=== PATIENT | female | born 1980 | race Asian ===

== ENCOUNTER 2019-02-09 02:40 | Observation (INO) | payer BC, OTHER ==
[2019-02-09 03:53] LABS: ADD MAN DIFF? NO
[2019-02-09 04:07] LABS: BASOPHILS % 0.6 % (0.0-2.0); EOSINOPHILS # 0.3 10^3/ul (0.0-0.5); EOSINOPHILS % 3.7 % (0.0-7.0); HEMATOCRIT 39.2 % (37.0-47.0); HEMOGLOBIN 12.9 g/dl (12.0-16.0); LYMPHOCYTES # 1.8 10^3/ul (0.8-2.9); LYMPHOCYTES % 26.2 % (15.0-51.0); MEAN CORPUSCULAR HEMOGLOBIN 29.3 pg (29.0-33.0); MEAN CORPUSCULAR HGB CONC 32.9 g/dl (32.0-37.0); MEAN CORPUSCULAR VOLUME 88.9 fl (82.0-101.0); MEAN PLATELET VOLUME 9.9 fl (7.4-10.4); MONOCYTE # 0.6 10^3/ul (0.3-0.9); MONOCYTES % 8.8 % (0.0-11.0); NEUTROPHILS % 60.1 % (39.0-77.0); PLATELET COUNT 240 10^3/UL (140-415); RED BLOOD COUNT 4.41 10^6/ul (4.20-5.40); RED CELL DISTRIBUTION WIDTH 12.9 % (11.5-14.5)
[2019-02-09 04:07] LABS: WHITE BLOOD COUNT 6.7 10^3/ul (4.8-10.8)
[2019-02-09 04:24] LABS: ADD UMIC NO; UR AMORPHOUS CRYSTAL FEW /HPF (NONE SEEN); UR ASCORBIC ACID NEGATIVE (NEGATIVE); UR BILIRUBIN (Dip) NEGATIVE (NEGATIVE); UR BLOOD (Dip) NEGATIVE (NEGATIVE); UR CLARITY SLIGHTLY CLOUDY (CLEAR); UR COLOR YELLOW (YELLOW); UR GLUCOSE (Dip) NEGATIVE (NEGATIVE); UR KETONES (Dip) NEGATIVE (NEGATIVE); UR LEUKOCYTE ESTERASE (Dip) NEGATIVE Leu/ul (NEGATIVE); UR MUCUS FEW /HPF (NONE SEEN); UR NITRITE (Dip) NEGATIVE (NEGATIVE); UR RBC 1 /HPF (0-5); UR SPECIFIC GRAVITY (Dip) 1.025 (1.003-1.030); UR SQUAMOUS EPITHELIAL CELL FEW /HPF (FEW); UR TOTAL PROTEIN (Dip) NEGATIVE (NEGATIVE); UR UROBILINOGEN (Dip) NEGATIVE (NEGATIVE); UR WBC 3 /HPF (0-5)
[2019-02-09] MEDS ORDERED: ONDANSETRON 4 MG INJ IV ×2 (05:30→10:30)
[2019-02-09] MEDS ORDERED: ACETAMINOPHEN 325 MG TAB PO (05:30)
[2019-02-09] MEDS: DOXYCYCLINE 100 MG in SOD CHLORIDE 0.9% 250 ML IVPB (09:51)
[2019-02-09] MEDS ORDERED: FENTAnyl 50 MCG/ML VIAL ×2 (10:02→10:40)
[2019-02-09] MEDS ORDERED: FENTAnyl 50 MCG/ML VIAL IV (10:30)
[2019-02-09] MEDS ORDERED: ALBUTEROL 0.083% (NEB) 2.5 MG/3 ML AMP HHN (10:30)
[2019-02-09] MEDS ORDERED: HYDROmorphONE 1 MG/5 ML IV SYRINGE IV (10:30)
[2019-02-09] MEDS ORDERED: DIPHENHYDRAMINE 50 MG INJ IV (10:30)
[2019-02-09] MEDS ORDERED: MEPERIDINE 25 MG INJ IV (10:30)
[2019-02-09] MEDS ORDERED: LIDOCAINE 2% (SDV) 5 ML INJ (10:39)
[2019-02-09] MEDS ORDERED: MIDAZOLAM 1 MG/ML 2 ML INJ (10:39)
[2019-02-09] MEDS ORDERED: PROPOFOL 0 ML (10:39)
[2019-02-09] MEDS ORDERED: ONDANSETRON 4 MG INJ (10:40)
[2019-02-09] MEDS ORDERED: DEXAMETHASONE 4 MG/ML 5 ML INJ (10:40)
[2019-02-09] MEDS ORDERED: LIDOCAINE 100 MG SYRINGE (10:40)
[2019-02-09] MEDS ORDERED: PROPOFOL 20 ML (10:40)
[2019-02-09] MEDS ORDERED: OXYTOCIN 10 UNIT INJ (10:40)
[2019-02-09] MEDS ORDERED: METOCLOPRAMIDE 10 MG INJ (10:40)
[2019-02-09] MEDS ORDERED: SUCCINYLCHOLINE CHLORIDE 100 MG/5 ML SYG IV (10:40)
[2019-02-09] MEDS ORDERED: SILVER NITRATE SWAB (10:48)
[2019-02-09] MEDS: METOCLOPRAMIDE 10 MG INJ IV (11:26)
[2019-02-09] MEDS: FENTAnyl 50 MCG/ML VIAL IV (11:26)
[2019-02-09] MEDS: HYDROmorphONE 1 MG/5 ML IV SYRINGE IV (11:26)
[2019-02-09] MEDS ORDERED: HYDROCODONE/APAP (5/325) TAB PO (12:30)
[2019-02-09] MEDS: DOXYCYCLINE 100 MG TAB PO (18:32)
[2019-02-10] MEDS ORDERED: PHENOL 1.4% SOLN 180 ML BTL MT (03:30)
[2019-02-10] MEDS: ACETAMINOPHEN 325 MG TAB PO ×2 (03:32→11:34)
== END 2019-02-10 16:00 | disposition home or self-care (01) ==
LOC: 2NE 07:30 → FTE 02:40 → 2NE 05:22
PROVIDERS: Obstetrics & Gynecology
DX: O02.1 Missed abortion (principal)
CPT/HCPCS: 36415; 59820; 76801; 76817; 81001; 81003; 84702; 85025; 86850; 86900; 86901; 88305; 99285-25